=== PATIENT | female | born 1985 | race African-American/Black ===

== ENCOUNTER 2016-10-18 09:58 | Emergency (ER) | payer MEDICAID ==
[~2016-10-18 09:58] MED LIST: COLACE-DPS100 MG PO; DERMOPLAST SPRA56 GM PR; MOTRIN-DPS800 MG PO; PRENATAL VIT1 TAB PO; TYLENOL #3 DPS1 TAB PO
--- NOTE | 2016-10-24 21:33 | ER ---
ADMIT: 10/18/2016 RM/LOC: ER [facility] MR#: [id number] [id number] [place], [place] [address] JUAN F HOPPER [address] [facility] [address] [place] [address] Emergency Room Report SEX: F AGE: 31 : 1985 DATE: 10/18/2016 ADDENDUM: CHIEF COMPLAINT: Abdominal pain. HISTORY OF PRESENT ILLNESS: This is a 31-year-old female that came in by ambulance for epigastric pain that has been going on for 3 hours. They gave her Zofran on the way here. It improved her pain significantly. Did do a CBC, CMP, and a test, everything essentially negative except for slightly low potassium at 3.5. She will be discharged home, and I will have her just do fluids and bland diet today. Follow up with primary care physician if symptoms continue. CLINICAL IMPRESSION: Epigastric abdominal pain, resolved in the ER. BERNABE Ospina / Jamie Martinez MD / anand JOB #: [id number] CC: Jamie Martinez MD, Attending Physician Iliana Peralta MD, Family Physician
== END 2016-10-18 23:06 | disposition home or self-care (01) ==
LOC: ER 09:58
DX: R10.13 Epigastric pain (principal)

== ENCOUNTER 2016-11-19 01:28 | Emergency (ER) | payer MEDICAID ==
--- NOTE | 2016-11-24 07:51 | ER ---
ADMIT: 11/19/2016 RM/LOC: ER [facility] MR#: [id number] [address] [place], [place] [address] JUAN F HOPPER [address] [place] [address] Emergency Room Report SEX: F AGE: 31 : 1985 DATE: 11/19/2016 CHIEF COMPLAINT: Abdominal pain, nausea. HISTORY OF PRESENT ILLNESS: The patient is a 31-year-old female, comes in complaining of some epigastric abdominal pain. She has had this trouble couple times in the past. She has been seen here in the ER, but has not followed up with her followup appointments. She denies any bowel or bladder changes. She is not having any chest pain or shortness of breath. She describes it as a burning pain in her epigastric region. PAST MEDICAL HISTORY: Negative. ALLERGIES: NONE. MEDICATIONS: None. SOCIAL HISTORY: Denies any smoking, drug, or alcohol use. PHYSICAL EXAMINATION: GENERAL: The patient is alert, oriented, in no distress. ABDOMEN: She does have some mild epigastric tenderness. HEART: Regular rate and rhythm. LUNGS: Clear to auscultation. SKIN: Warm and dry. LABORATORY DATA: CBC is normal. Chemistries; potassium 3.6, glucose 149, AST is elevated is to 233, ALT is elevated to 116. Urine is negative. Urinalysis shows 2+ leukocyte esterase, otherwise negative. EMERGENCY DEPARTMENT COURSE: The patient was given Zofran 4 mg ODT, a GI cocktail, and Carafate 1 g p.o. She states her symptoms were significantly improved with that. Plan at this time is to get the patient discharged home to get an outpatient ultrasound and to follow up with Dr. Jhony Ellsworth for results of that, he is on for city call, she does not have a regular physician. The patient is discharged home in significantly improved condition with; DIAGNOSES: 1. Abdominal pain. 2. Nausea, vomiting. Jamie Martinez MD/ anand JOB #: [id number] CC: Jamie Martinez MD, Attending Physician ADMIT: 11/19/2016 RM/LOC: [facility] MR#: [id number] [address] [id number] JUAN F HOPPER [address] [facility] [address] [place] [address] Emergency Room Report SEX: F AGE: 31 : 1985 Iliana Peralta MD, Family Physician
== END 2016-11-19 05:58 | disposition home or self-care (01) ==
LOC: ER 01:28
DX: R10.13 Epigastric pain (principal); R11.2 Nausea with vomiting, unspecified

== ENCOUNTER → 2016-11-20 | Outpatient (CLI) | payer MEDICAID | END | disposition home or self-care (01) | LOC: RAD.S 10:11 | DX: R10.9 Unspecified abdominal pain (principal); R74.8 Abnormal levels of other serum enzymes; K80.20 Calculus of gallbladder without cholecystitis without obstruction; K76.89 Other specified diseases of liver ==

== ENCOUNTER → 2016-12-09 | Outpatient (CLI) | payer MEDICAID | END | disposition home or self-care (01) | LOC: RAD.S 10:00 | DX: R10.9 Unspecified abdominal pain (principal); R93.2 Abnormal findings on diagnostic imaging of liver and biliary tract; K80.20 Calculus of gallbladder without cholecystitis without obstruction; D18.03 Hemangioma of intra-abdominal structures ==